=== PATIENT | female | born 1960 | race Caucasian/White ===

== ENCOUNTER 2019-02-02 11:12 | Inpatient (IN) | payer OTHER ==
[~2019-02-02] VITALS: Ht 144.8 cm; Wt 60.0 kg
[~2019-02-02 11:12] MED LIST: ARIP5TAB14 PO; ASCO500C7 PO; AZU500E PO; CALC1TAB92 PO; CALC500T12 PO; CIPR500T4 PO; ERGO500014 PO; FOLI-49 PO; HYDR-3498 PO; HYDR-3601 PO; IBUP-1542 PO; MET25 PO; METO-335 PO; METR500T PO; OMEP20CA17 PO; PRED10TA PO; PRED5TAB PO; SULF500T45 PO; TRAM50TA PO
[2019-02-02] MEDS ORDERED: ACETAMINOPHEN 500 MG TAB PO STA (11:35)
[2019-02-02] MEDS ORDERED: metroNIDAZOLE 500 MG/NS (PMX) 100 ML IVPB ONE (12:00)
[2019-02-02] MEDS ORDERED: PIPER-TAZO 3.375 GM IV (PMX) 100 ML IVPB ONE (12:00)
[2019-02-02] MEDS ORDERED: ACETAMINOPHEN 325 MG TAB PO PRN (14:00)
[2019-02-02] MEDS ORDERED: ONDANSETRON 4 MG INJ IV PRN ×2 (14:00→15:00)
[2019-02-02] MEDS ORDERED: NACL 0.9% 3 ML SYG IV SCH (15:00)
[2019-02-02] MEDS: PIPER-TAZO 3.375 GM IV (PMX) 100 ML IVPB SCH ×2 (15:00→21:52)
[2019-02-02] MEDS: NS + KCL 20 MEQ 1,000 ML IV SCH (16:01)
[2019-02-02 17:00] VITALS: BP 101/56; PULSE 78; RESP 18; Ht 144.8 cm; Wt 60.0 kg
[2019-02-02] MEDS: morphine 2 MG INJ IV PRN ×2 (17:21→21:55)
[2019-02-02 20:00] VITALS: BP 122/70; PULSE 88; RESP 18
[2019-02-02] MEDS: FAMOTIDINE 20 MG INJ IV SCH (21:53)
[2019-02-03] MEDS: NS + KCL 20 MEQ 1,000 ML IV SCH (01:58)
[2019-02-03 02:00] VITALS: BP 101/65; PULSE 110; RESP 18
[2019-02-03] MEDS: morphine 2 MG INJ IV PRN ×2 (02:05→06:07)
[2019-02-03 04:15] VITALS: PULSE 109; RESP 18
[2019-02-03] MEDS: PIPER-TAZO 3.375 GM IV (PMX) 100 ML IVPB SCH ×3 (05:35→21:29)
[2019-02-03 07:27] VITALS: BP 96/58; PULSE 98; RESP 17
[2019-02-03] MEDS ORDERED: METHYLPREDNISOLONE 40 MG INJ IV ONE (09:00)
[2019-02-03] MEDS: FAMOTIDINE 20 MG INJ IV SCH ×2 (09:08→21:29)
[2019-02-03] MEDS: ENOXAPARIN 30 MG/0.3 ML SYG SC SCH (09:12)
[2019-02-03] MEDS: METHYLPREDNISOLONE 40 MG INJ IV SCH (09:30)
[2019-02-03] MEDS: SOD CHLORIDE 0.9% 1,000 ML IV SCH (11:12)
[2019-02-03] MEDS: ACETAMINOPHEN 325 MG TAB PO PRN ×2 (14:35→21:29)
[2019-02-03 14:37] VITALS: BP 107/60; PULSE 87; RESP 16
[2019-02-03 19:52] VITALS: BP 103/57; PULSE 88; RESP 18
[2019-02-04] MEDS ORDERED: traMADol 50 MG TAB PO PRN
[2019-02-04 02:09] VITALS: BP 108/62; PULSE 77; RESP 20
[2019-02-04] MEDS: SOD CHLORIDE 0.9% 1,000 ML IV SCH ×2 (03:04→15:15)
[2019-02-04] MEDS: PIPER-TAZO 3.375 GM IV (PMX) 100 ML IVPB SCH ×2 (05:33→13:11)
[2019-02-04] MEDS: morphine 2 MG INJ IV PRN (06:23)
[2019-02-04 07:23] VITALS: BP 117/67; PULSE 83; RESP 17
[2019-02-04] MEDS: ENOXAPARIN 30 MG/0.3 ML SYG SC SCH (08:41)
[2019-02-04] MEDS: METHYLPREDNISOLONE 40 MG INJ IV SCH (08:42)
[2019-02-04] MEDS: FAMOTIDINE 20 MG INJ IV SCH (08:42)
[2019-02-04 13:34] VITALS: BP 132/71; PULSE 97; RESP 18
== END 2019-02-04 17:00 | disposition home health service (06) | DRG 392 ==
LOC: E/R 11:12 → MS1 13:59
PROVIDERS: ADMIT Internal Medicine Cardiovascular Disease; ATTEND Internal Medicine Cardiovascular Disease
DX: K57.32 Diverticulitis of large intestine without perforation or abscess without bleeding (principal); R65.10 Systemic inflammatory response syndrome (SIRS) of non-infectious origin without acute organ dysfunction; K76.0 Fatty (change of) liver, not elsewhere classified; M06.9 Rheumatoid arthritis, unspecified; I10 Essential (primary) hypertension; E87.6 Hypokalemia; D72.829 Elevated white blood cell count, unspecified
CPT/HCPCS: 36415; 71045; 74176; 80053; 83605; 83690; 83735; 84100; 85025; 93005; 96374; 96375; J1650; J2270; J2405; J2543; J2920; J3480; J7030